=== PATIENT | female | born 1965 | race American Indian/Alaskan Native ===

== ENCOUNTER 2016-12-01 12:52 | Outpatient (CLI) | payer OTHER ==
--- NOTE | 2016-12-03 14:23 | Magnetic Resonance Report ---
MRI PELVIS WITHOUTAND WITH CONTRAST: 12/01/16 12:52:00 CLINICAL: Uterine fibroids. COMPARISON :None. TECHNIQUE: Sagittal, coronal and axial T1 and T2 fat sat sequences plus sagittal, coronal and axial postcontrast T1 fat sequences on a 1.5 Ree magnet. 15 cc of Multihance was injected intravenously for contrast portion of exam the consent was obtained prior to the administration of contrast. FINDINGS: Enlarged fibroid uterus measures approximately 12 cm pericolic dimension by 12 cm transverse dimension by 12 cm AP dimension. Numerous nonenhancing intramural and submucosal leiomyomata. The largest is located in the posterior body and lower uterine segment and measures 6.8 x 6.0 cm. At least eight non-enhancing fibroids. A heterogeneous enhancing mass of the right lower uterus measures 4.8 x 4.7 x 3.3 cm. The endometrium is normal and measures 5 mm in AP thickness. The left ovary is small with small follicles. A left hydrosalpinx measures at least 8 cm in length. The right ovary is not clearly demonstrated. No ascites. Normal urinary bladder and rectum. The bones and soft tissues are normal. IMPRESSION: 1. Uterine leiomyomata with at least 8 nonenhancing fibroids a dominant nonenhancing 6.8 cm fibroid. 2. A 4.8 cm right lower uterine segment uterine mass may partially involve if fibroid but is suspicious given its degree of enhancement and is irregular contour. My concern as this may be sarcomatous degeneration of a fibroid or perhaps an abnormal right ovary that is inseparable from the uterus. 3. Left hydrosalpinx. 4. Normal left ovary. 5. Normal endometrium.
== END 2016-12-01 12:53 | disposition home or self-care (01) ==
LOC: SPVIMAG 12:52
PROVIDERS: ATTEND Internal Medicine Hematology & Oncology
DX: D25.0 Submucous leiomyoma of uterus (principal); D25.1 Intramural leiomyoma of uterus
CPT/HCPCS: 72197; A9577